=== PATIENT | male | born 1985 | race Caucasian/White ===

== ENCOUNTER 2018-05-17 12:19 | Emergency (ER) | payer OTHER ==
--- NOTE | 2018-05-17 14:59 | EDPHY ---
H & P Time Seen by Provider: 05/17/18 14:37 HPI/ROS: CHIEF COMPLAINT: Dysuria, blood in urine HISTORY OF PRESENT ILLNESS: The patient is a 32-year-old male who presents emergency department with blood in urine and urinary frequency. The patient states he has mild upper right back pain but this could be unrelated. His back pain is slightly worse with movement. It has been occurring intermittently. The patient states that he developed urinary frequency and blood in his urine since yesterday. Patient was seen in urgent care. He reports that he had white cells and red cells in his urine was sent to the emergency department for possible kidney stone. Patient states he has not been sexually active for 4 years. He has had no penile discharge. No testicular pain. No nausea or vomiting. No abdominal pain. Currently the patient has no discomfort at rest. The patient describes discomfort "in my urethra" when he urinates. REVIEW OF SYSTEMS: 10 systems were reveiwed and are negative with the exception of the elements mentioned in the history of present illness. Past Medical/Surgical History: The negative Past surgical history: Noncontributory Social history: The patient does not smoke Smoking Status: Never smoked Physical Exam: Vitals noted. Afebrile GENERAL: Well-appearing, in no acute distress, alert. HEENT: Eyes normal to inspection, normal pharynx, no signs of dehydration. NECK: Normal, supple. RESPIRATORY: Clear to auscultation bilaterally, no rales, rhonchi or wheezing. CVS: Regular rate and rhythm, no rubs, murmurs, or gallops. ABDOMEN: Soft, nontender, nondistended, no organomegaly. Benign BACK: Normal to inspection, no CVA tenderness. Normal : Patient is circumcised. Normal appearing meatus. No discharge. No testicular tenderness. SKIN: Normal color, no rash, warm, dry. No pallor. EXTREMITIES: No pedal edema, no joint swelling. NEURO/PSYCH: Alert and oriented, normal mood and affect. Constitutional: Initial Vital Signs Temperature (C) 36.8 C 05/17/18 12:21 Heart Rate 55 L 05/17/18 12:21 Respiratory Rate 18 05/17/18 12:21 Blood Pressure 142/77 H 05/17/18 12:21 O2 Sat (%) 97 05/17/18 12:21 O2 Delivery Mode Room Air Allergies/Adverse Reactions: No Known Allergies Allergy (Unverified 05/17/18 12:21) Home Medications: Medication Instructions Recorded Cephalexin [Keflex (*)] 500 mg PO QID #12 cap 05/17/18 Hydrocodone/APAP 5/325 [[place] 1 - 2 tab PO Q4 #9 tab 05/17/18 5/325 (RX)] Phenazopyridine HCl [Pyridium] 100 mg PO TID #6 tab 05/17/18 Medical Decision Making ED Course/Re-evaluation: In the emergency department discussed possible etiologies with the patient. I answered all his questions. Urine sample was obtained. I do not have the urine results from urgent care. I do not feel the patient needs CT imaging at this time. I discussed the reason for this with the patient. Although kidney stone is on the differential diagnosis he is having no significant abdominal pain. He has no CVA tenderness or flank pain at the time my exam. Unit the patient has a diagnosis of kidney stone, I am not sure, at this point, imaging will help with his treatment. Urine: The patient has positive nitrites and blood. I discussed results with the patient. On recheck he was sitting comfortably in the bed. He had no abdominal pain or flank pain. His abdomen was benign. At this point will treat the patient with a course of antibiotics. He will follow up with Urology. I do not feel he needs imaging. He will return with worsening symptoms. A urine culture was sent. Differential Diagnosis: My differential includes but is not limited to urinary tract infection, pyelonephritis, kidney stone, urethritis, sexually transmitted disease - Data Points Laboratory Results: 05/17/18 05/17/18 15:25 13:55 POC Hgb 15.3 gm/dL gm/dL (13.7-17.5) POC Hct 45 % % (40-51) POC Sodium 143 mEq/L mEq/L (135-145) POC Potassium 4.1 mEq/L mEq/L (3.3-5.0) POC Chloride 105 mEq/L mEq/L (97-110) POC BUN 22 mg/dL mg/dL (7-23) POC Creatinine 1.0 mg/dL mg/dL (0.7-1.3) POC Glucose 94 mg/dL mg/dL (70-100) Urine Color KIMBERLY Urine Appearance CLEAR Urine pH 5.0 (5.0-7.5) Ur Specific Bland 1.010 (1.002-1.030) Urine Protein NEGATIVE (NEGATIVE) Urine Ketones NEGATIVE (NEGATIVE) Urine Blood 2+ H (NEGATIVE) Urine Nitrate POSITIVE H (NEGATIVE) Urine Bilirubin NEGATIVE (NEGATIVE) Urine Urobilinogen NEGATIVE EU EU (0.2-1.0) Ur Leukocyte Esterase NEGATIVE (NEGATIVE) Urine RBC 5-10 /hpf H /hpf (0-3) Urine WBC 1-3 /hpf /hpf (0-3) Ur Epithelial Cells TRACE /lpf /lpf (NONE-1+) Urine Glucose NEGATIVE (NEGATIVE) Point of Care Test Results: Chemistry 05/17/18 13:55 POC Sodium 143 mEq/L mEq/L (135-145) POC Potassium 4.1 mEq/L mEq/L (3.3-5.0) POC Chloride 105 mEq/L mEq/L (97-110) POC BUN 22 mg/dL mg/dL (7-23) POC Creatinine 1.0 mg/dL mg/dL (0.7-1.3) POC Glucose 94 mg/dL mg/dL (70-100) ISTAT H&H 05/17/18 13:55 POC Hgb 15.3 gm/dL gm/dL (13.7-17.5) POC Hct 45 % % (40-51) Departure - Departure Disposition: Home, Routine, Self-Care Clinical Impression: Dysuria Condition: Good Instructions: Hematuria (ED), Dysuria (ED) Additional Instructions: Take your entire course of antibiotics. Return with increasing pain, fever, nausea, vomiting or any other concerns. Referrals: Smith Roman MD [Medical Doctor] - 5-7 days, call for appt. Prescriptions: Cephalexin [Keflex (*)] 500 mg PO QID #12 cap
[2018-05-17 16:29] VITALS: BP 113/61
[2018-05-17] MEDS ORDERED: PHENAZOPYRIDINE HCL 200 MG TAB PO ONE (16:47)
[2018-05-17] MEDS ORDERED: CEPHALEXIN 500MG PREPACK#4 BTL TAKEHOME ONE (16:47)
== END 2018-05-17 16:57 | disposition home or self-care (01) ==
DX: R30.0 Dysuria (principal); R35.0 Frequency of micturition
CPT/HCPCS: 82435-PO; 82565-PO; 82947-PO; 84132-PO; 84295-PO; 84520-PO; 85014-PO